=== PATIENT | female | born 1960 | race Caucasian/White ===

== ENCOUNTER → 2018-11-16 | Day surgery (SDC) | payer MEDICARE, BC ==
[~2018-11-16] MED LIST: Lidocaine 1% 20 ML MDV ONE
--- NOTE | 2018-11-18 08:23 | OR ---
DATE OF OPERATION: 11/17/2018 PREOPERATIVE DIAGNOSIS: VENOUS INSUFFICIENCY WITH PAINFUL VARICOSITIES. POSTOPERATIVE DIAGNOSIS: VENOUS INSUFFICIENCY WITH PAINFUL VARICOSITIES. SURGEON: Oscar Patino MD PROCEDURE: TAMAR BILATERAL GREATER SAPHENOUS VEINS. ANESTHESIA: Local with tumescent. COMPLICATIONS: None. SPECIMEN: None. FINDINGS: Successful TAMAR bilateral GSVs. INDICATIONS: The patient has documented saphenofemoral insufficiency bilaterally at the saphenofemoral junction. She elects to proceed with endovenous ablation. DESCRIPTION OF PROCEDURE: The patient was brought to the operating room suite, and the insufficient greater saphenous veins on each leg were mapped via ultrasound and diagrammed on the overlying skin along with the access site at around the knee. Both limbs were prepped and draped in the sterile fashion. The patient was placed in reverse Trendelenburg position, and the left leg was isolated first. Local anesthesia was instilled at the access site. The vein was accessed using ultrasound guidance and the Seldinger technique, a guidewire was introduced through the needle. The needle was removed. A small incision was made with #11 blade scalpel. Six-[place] sheath was placed over the guidewire into the vein and held in place by skin tension. Guidewire was removed and the sheath was flushed. The radiofrequency probe was placed into the vein and advanced to the level of the saphenofemoral junction approximately 1.9 cm from it. Once probe position verified via ultrasound, tumescent anesthesia was infiltrated under ultrasound guidance, precisely into the perivenous compartment along the length of the vein from the access site to the junction achieving a halo effect. The patient was placed back in Trendelenburg position to exsanguinate the superficial system, and once the probe position confirmed via ultrasound and with direct external compression along the length of the heating element, radiofrequency energy was applied. The vein was segmentally ablated heating a 7 cm segment and indexing the catheter forward 6.5 cm until entire treatment length was complete. Device temperature was maintained at 120 degrees Celsius with an initial power level of 40 gonzales, dropping to below 20 for each treatment. Total radiofrequency treatment time on the left leg was 3 minutes and 20 seconds with 7 radiofrequency cycles on a total of 250 mL of tumescent anesthesia used. Once successful treatment was confirmed via ultrasound, the catheter and sheath were withdrawn and hemostasis was achieved with direct pressure. Right leg was then isolated, and once again at the access site, the vein was accessed via ultrasound guidance and Seldinger technique with a guidewire introduced through the needle. Once the needle was removed, a small incision was made with an 11-blade scalpel. A 6-[place] sheath was then placed over the guidewire and advanced into the vein and held in place by skin tension. Once guidewire was removed, the sheath was flushed. The radiofrequency probe was again placed into the vein through the sheath and positioned 2 cm distal to the saphenofemoral junction. Probe position was verified via ultrasound and then tumescent anesthesia was infiltrated into the perivenous compartment, achieving a halo effect from the level of the junction to the access site. The patient was placed in Trendelenburg position to exsanguinate the superficial system and radiofrequency probe position was again confirmed with ultrasound. With direct external compression on the length of the heating element, radiofrequency energy was applied. The vein was segmentally ablated heating a 7 cm segment and indexing the catheter forward 6.5 cm until treatment length complete. Device temperature was maintained at 120 degrees Celsius with an initial power level of 40 gonzales dropping to below 20 gonzales for each treatment. Total treatment time was 2 minutes and 40 seconds with 8 radiofrequency cycles. A total of 350 mL of tumescent was used. Ultrasound confirmed successful treatment. Catheter and sheath were withdrawn without complication, and hemostasis was achieved with direct pressure. Both skin incisions were closed with bandages and a compression wrap was placed on both legs from the level of the foot to the groin. The patient was stable in the recovery room. DHARA/ROHIT /[id number]
== END ==
LOC: CC.SDS 09:49
PROVIDERS: ATTEND Family Medicine
DX: I83.813 Varicose veins of bilateral lower extremities with pain (principal); I87.2 Venous insufficiency (chronic) (peripheral)